=== PATIENT | female | born 1950 | race Caucasian/White ===

== ENCOUNTER 2017-07-06 20:08 | Emergency (ER) | payer MEDICARE, BC ==
[2017-07-06 20:38] VITALS: BP 165/74; PULSE 78; RESP 18; TEMP 98.3; O2SAT 96
[2017-07-06] MEDS ORDERED: METF500T PO (20:59)
[2017-07-06] MEDS ORDERED: ASPI81CH6 CHEW (20:59)
[2017-07-06] MEDS ORDERED: ROSU5 PO (20:59)
[2017-07-06] MEDS ORDERED: GLIP10TA6 PO (20:59)
[2017-07-06] MEDS ORDERED: DULA0.5I SQ (20:59)
[2017-07-06] MEDS ORDERED: COZA50TA PO (20:59)
[2017-07-06] MEDS ORDERED: MULTTAB67 PO (20:59)
[2017-07-06] MEDS ORDERED: ZANT150T2 PO (20:59)
[2017-07-06 21:14] VITALS: BP 156/87; PULSE 73; RESP 16; O2SAT 95
--- NOTE | 2017-07-06 21:54 | PD ---
HPI Chief Complaint: Chest Pain Time Seen by Provider: 21:50 Travel History International Travel<30 days: No Contact w/Intl Traveler<30days: No Traveled to known affect area: No History of Present Illness HPI The patient is a 67-year-old female with no known history of heart disease who at 6 PM felt a sharp, knifelike, constant, pleuritic epigastric pain radiating to the back, 10 over 10. This pain lasted about 15 minutes and is completely gone away now. She denies any fever, melanotic or bloody stools. She denies any chest pain. She does not smoke. She does have dae-tjgfgns-lskjvjbob diabetes and hypertension. She has never had this pain before. There were no modifying factors making it better or worse. PFSH Past Medical History High Cholesterol: Yes Diabetes: Yes Patient Takes Glucophage: Yes GERD: Yes Hypertension: Yes Medical other: Yes (CH[employer] POX: AGE 20) Tetanus Vaccination: > 5 Years Influenza Vaccination: Yes ?: Not Menopausal: Yes : 2 Para: 2 Past Surgical History Tonsillectomy: Yes Social History Alcohol Use: Yes ("SOCIALLY") Tobacco Use: No (QUIT AGE 47) Substance Use: No Allergies-Medications (Allergen,Severity, Reaction): Coded Allergies: No Known Allergies (Unverified , 07/06/17) Reported Meds & Prescriptions Reported Meds & Active Scripts Active Reported Glipizide 10 Mg Tab 10 Mg PO BIDAC Take 30 minutes before a meal Metformin (Metformin HCl) 500 Mg Tab 500 Mg PO BIDPC Review of Systems Except as stated in HPI: all other systems reviewed are Neg Physical Exam Narrative GENERAL: The patient is alert, oriented 3 in no apparent distress. Her vital signs show blood pressure 165/74 but otherwise normal. SKIN: Focused skin assessment warm/dry. HEAD: Atraumatic. Normocephalic. EYES: Pupils equal and round. No scleral icterus. No injection or drainage. ENT: No nasal bleeding or discharge. Mucous membranes pink and moist. NECK: Trachea midline. No JVD. CARDIOVASCULAR: Regular rate and rhythm. No murmur appreciated. I cannot reproduce the patient's pain by pressing on the chest wall. RESPIRATORY: No accessory muscle use. Clear to auscultation. Breath sounds equal bilaterally. GASTROINTESTINAL: Abdomen soft, non-tender, nondistended. Hepatic and splenic margins not palpable. No guarding or rebound is present. I cannot reproduce the patient's pain by pressing on the abdominal wall. MUSCULOSKELETAL: No obvious deformities. No clubbing. No cyanosis. No edema. NEUROLOGICAL: Awake and alert. No obvious cranial nerve deficits. Motor grossly within normal limits. Normal speech. PSYCHIATRIC: Appropriate mood and affect; insight and judgment normal. Data Data Last Documented VS Vital Signs Date Time Temp Pulse Resp B/P (MAP) Pulse Ox O2 Delivery O2 Flow Rate FiO2 07/06/17 22:53 73 16 170/92 (118) 99 Room Air 07/06/17 20:38 98.3 Orders Orders Electrocardiogram (07/06/17 20:23) Complete Blood Count With Diff (07/06/17 21:55) Comprehensive Metabolic Panel (07/06/17 21:55) Troponin I (07/06/17 21:55) Sodium Chloride 0.9% Flush (Ns Flush) (07/06/17 22:00) Chest, Pa & Lat (07/06/17 21:55) Pantoprazole (Protonix) (07/06/17 23:15) Labs Laboratory Tests Test 07/06/17 20:50 White Blood Count 10.3 TH/MM3 Red Blood Count 4.07 MIL/MM3 Hemoglobin 12.3 GM/DL Hematocrit 35.6 % Mean Corpuscular Volume 87.5 FL Mean Corpuscular Hemoglobin 30.1 PG Mean Corpuscular Hemoglobin Concent 34.5 % Red Cell Distribution Width 13.2 % Platelet Count 264 TH/MM3 Mean Platelet Volume 9.1 FL Neutrophils (%) (Auto) 64.9 % Lymphocytes (%) (Auto) 27.6 % Monocytes (%) (Auto) 4.9 % Eosinophils (%) (Auto) 1.5 % Basophils (%) (Auto) 1.1 % Neutrophils # (Auto) 6.6 TH/MM3 Lymphocytes # (Auto) 2.9 TH/MM3 Monocytes # (Auto) 0.5 TH/MM3 Eosinophils # (Auto) 0.2 TH/MM3 Basophils # (Auto) 0.1 TH/MM3 CBC Comment DIFF FINAL Differential Comment Blood Urea Nitrogen 20 MG/DL Creatinine 0.62 MG/DL Random Glucose 261 MG/DL Total Protein 7.0 GM/DL Albumin 3.6 GM/DL Calcium Level 8.6 MG/DL Alkaline Phosphatase 138 U/L Aspartate Amino Transf (AST/SGOT) 20 U/L Alanine Aminotransferase (ALT/SGPT) 32 U/L Total Bilirubin 0.2 MG/DL Sodium Level 138 MEQ/L Potassium Level 3.6 MEQ/L Chloride Level 103 MEQ/L Carbon Dioxide Level 26.8 MEQ/L Anion Gap 8 MEQ/L Estimat Glomerular Filtration Rate 96 ML/MIN Troponin I LESS THAN 0.02 NG/ML MDM Medical Decision Making Medical Screen Exam Complete: Yes Emergency Medical Condition: Yes Medical Record Reviewed: Yes Interpretation(s) The EKG is completely normal with a ventricular rate of 74. The CBC is normal. The complete metabolic profile is normal and the troponin I is normal. The chest x-ray is normal. Differential Diagnosis Reflux esophagitis, ulcer pain, pancreatitis, chest wall pain, acute coronary syndrome-highly unlikely, electrolyte disorder, gastritis Narrative Course The patient likely has gastritis. She will be given Protonix, apparently they already have that at home. 40 mg by mouth daily is the dose. Diagnosis Primary Impression: Gastritis Additional Instructions: As we discussed, take the Protonix that you already have at home, 40 mg by mouth daily. Follow-up next week with a primary care physician. Avoid alcohol , aspirin and nonsteroidal anti-inflammatory medications. Follow-up with a primary care physician next week. Disposition: 01 DISCHARGE HOME Gibran Mcgregor MD Jul 06, 2017 21:54
[2017-07-06] MEDS ORDERED: SODIUM CHLORIDE 0.9% FLUSH 10 ML FLUSH IVF PRN (22:00)
[2017-07-06 22:18] LABS: AUTOMATED NEUTROPHIL # 6.6 TH/MM3 (1.8-7.7); BASOPHIL # 0.1 TH/MM3 (0-0.2); BASOPHIL % 1.1 % (0.0-2.0); EOSINOPHIL # 0.2 TH/MM3 (0-0.4); EOSINOPHIL % 1.5 % (0.0-4.0); HEMATOCRIT 35.6 % (35.0-46.0); HEMOGLOBIN 12.3 GM/DL (11.6-15.3); LYMPH % 27.6 % (9.0-44.0); LYMPHOCYTE # 2.9 TH/MM3 (1.0-4.8); MEAN CELL VOLUME 87.5 FL (80.0-100.0); MEAN CORPUSCULAR HEMOGLOBIN 30.1 PG (27.0-34.0); MEAN CORPUSCULAR HGB CONC 34.5 % (32.0-36.0); MEAN PLATELET VOLUME 9.1 FL (7.0-11.0); MONO % 4.9 % (0.0-8.0); MONOCYTE # 0.5 TH/MM3 (0-0.9); NEUT % 64.9 % (16.0-70.0); PLATELET COUNT 264 TH/MM3 (150-450); RED BLOOD COUNT 4.07 MIL/MM3 (4.00-5.30); RED CELL DISTRIBUTION WIDTH 13.2 % (11.6-17.2); WHITE BLOOD COUNT 10.3 TH/MM3 (4.0-11.0)
[2017-07-06 22:27] LABS: CHLORIDE 103 MEQ/L (98-107); SODIUM (NA) 138 MEQ/L (136-145)
[2017-07-06 22:31] LABS: CALCIUM 8.6 MG/DL (8.5-10.1)
[2017-07-06 22:32] LABS: ALBUMIN 3.6 GM/DL (3.4-5.0); BICARBONATE 26.8 MEQ/L (21.0-32.0); BLOOD UREA NITROGEN 20 MG/DL (7-18); GLUCOSE,RANDOM 261 MG/DL (74-106)
[2017-07-06 22:35] LABS: ALT (GPT) 32 U/L (10-53); AST (GOT) 20 U/L (15-37); CREATININE 0.62 MG/DL (0.50-1.00); GLOMERULAR FILTRATION RATE 96 ML/MIN (>89)
[2017-07-06 22:37] LABS: TOTAL BILIRUBIN ADULT 0.2 MG/DL (0.2-1.0)
[2017-07-06 22:38] LABS: ALKALINE PHOSPHATASE 138 U/L (45-117)
[2017-07-06 22:40] LABS: TROPONIN I LESS THAN 0.02 NG/ML (0.02-0.05)
--- NOTE | 2017-07-06 22:45 | RADRPT ---
EXAM DATE/TIME: 07/06/2017 22:20 [facility] COMPARISON: No previous studies available for comparison. INDICATIONS : Chest pain. MEDICAL HISTORY : Diabetes mellitus type II. Hypertension SURGICAL HISTORY : None. ENCOUNTER: Initial ACUITY: 1 day PAIN SCORE: 10/10 LOCATION: Bilateral chest FINDINGS: PA and lateral views of the chest demonstrate the lungs to be symmetrically aerated without evidence of mass, infiltrate or effusion. The cardiomediastinal contours are unremarkable. Osseous structure s are intact. CONCLUSION: No acute cardiopulmonary disease. Giancarlo Martinez MD on July 06, 2017 at 22:42 Board Certified Radiologist. This report was verified electronically.
[2017-07-06 22:53] VITALS: BP 170/92; PULSE 73; RESP 16; O2SAT 99
[2017-07-06] MEDS ORDERED: PANTOPRAZOLE SOD 40 MG DELAYED RELEASE TAB PO ONE (23:15)
--- NOTE | 2017-07-07 00:35 | EKG ---
Date Performed: 07/06/2017 Time Performed: 20:23:49 PTAGE: 67 years EKG: Sinus rhythm NORMAL ECG NO PREVIOUS TRACING DOCTOR: Ky Cabezas Interpretating Date/Time 07/07/2017 00:34:19
== END 2017-07-06 23:25 | disposition home or self-care (01) ==
LOC: PHED 20:08
DX: K29.70 Gastritis, unspecified, without bleeding (principal); E78.00 Pure hypercholesterolemia, unspecified; E11.9 Type 2 diabetes mellitus without complications; I10 Essential (primary) hypertension
CPT/HCPCS: 71046; 80053; 84484; 85025; 93005; 99285

== ENCOUNTER 2017-10-28 11:24 | Emergency (ER) | payer MEDICARE, BC ==
[~2017-10-28] VITALS: Ht 170.2 cm; Wt 79.0 kg
[~2017-10-28 11:24] MED LIST: ASPI81CH6 CHEW; COZA50TA PO; DULA0.5I SQ; GLIP10TA6 PO; METF500T PO; MULTTAB67 PO; ROSU5 PO; ZANT150T2 PO
[2017-10-28 11:27] VITALS: BP 178/83; PULSE 77; RESP 16; TEMP 97.8; O2SAT 98
[2017-10-28 12:10] LABS: BILIRUBIN, URINE NEG (NEG); BLOOD, URINE NEG (NEG); GLUCOSE,URINE 250 mg/dL (NEG); KETONE, URINE NEG (NEG); NITRITE,URINE NEG (NEG); URINE COLOR YELLOW (YELLW/STRAW); URINE LEUKOCYTE ESTERASE TRACE (NEG)
[2017-10-28] MEDS ORDERED: CYCLOBENZAPRINE HCL 10 MG TAB PO ONE (12:15)
[2017-10-28] MEDS ORDERED: ACETAMINOPHEN/HYDROcodone 325 MG/5 MG TAB PO ONE (12:15)
[2017-10-28 12:20] LABS: BACTERIA, URINE MOD /hpf; SQUAMOUS EPITHELIAL CELL URINE 0-5 /hpf (0-5); WBC, URINE 0-2 /hpf (0-5)
[2017-10-28 12:21] VITALS: BP 143/74; PULSE 78; RESP 16; O2SAT 98
--- NOTE | 2017-10-28 12:22 | PD ---
HPI Chief Complaint: Abdominal Pain Time Seen by Provider: 11:44 Travel History International Travel<30 days: No Contact w/Intl Traveler<30days: No Traveled to known affect area: No History of Present Illness HPI Patient is a 67-year-old female presents emergency department for evaluation of back pain now with some suprapubic pressure and feeling like "things are starting to fall out down there". Patient states she has a history of bladder mesh for bladder prolapse. She denies any saddle anesthesia denies any weakness or tingling in her legs and denies any dysuria. Patient states that the symptoms all started a few days ago when she was lifting a cabinet off the ground. She did not feel any injury at that time. States has no problems with her back and it does worsen with bending motion. States symptoms are moderate, associated signs symptoms context and duration as above. PFSH Past Medical History Hx Anticoagulant Therapy: Yes (BABY ASA DAILY) Cardiovascular Problems: Yes (HTN, CHOL) High Cholesterol: Yes Diabetes: Yes Patient Takes Glucophage: Yes GERD: Yes Hypertension: Yes ?: Not Menopausal: Yes : 2 Para: 2 Past Surgical History Tonsillectomy: Yes Other Surgery: Yes (bladder lift) Social History Alcohol Use: Yes ("SOCIALLY") Tobacco Use: No (QUIT AGE 47) Substance Use: No Allergies-Medications (Allergen,Severity, Reaction): Coded Allergies: No Known Allergies (Unverified , 10/28/17) Reported Meds & Prescriptions Reported Meds & Active Scripts Active Ultram (Tramadol HCl) 50 Mg Tab 50 Mg PO Q6H PRN Prednisone 20 Mg Tab 60 Mg PO DAILY 5 Days Reported Zantac (Ranitidine HCl) 150 Mg Tab 150 Mg PO HS Cozaar (Losartan Potassium) 50 Mg Tab 50 Mg PO DAILY Aspirin Low Dose (Aspirin) 81 Mg Chew 81 Mg CHEW DAILY Multiple Vitamin 1 Tab 1 Tab PO DAILY Trulicity Inj (Dulaglutide Inj) 1.5 Mg/0.5 Ml Pen 1.5 Mg SQ Q7D Crestor (Rosuvastatin Calcium) 5 Mg Tab 5 Mg PO HS Glipizide 10 Mg Tab 10 Mg PO BIDAC Take 30 minutes before a meal Metformin (Metformin HCl) 500 Mg Tab 500 Mg PO BIDPC Review of Systems Except as stated in HPI: all other systems reviewed are Neg Physical Exam Narrative GENERAL: Well-nourished, well-developed patient. SKIN: Focused skin assessment warm/dry. HEAD: Normocephalic. EYES: No scleral icterus. No injection or drainage. NECK: Supple, trachea midline. No JVD or lymphadenopathy. CARDIOVASCULAR: Regular rate and rhythm without murmurs, gallops, or rubs. RESPIRATORY: Breath sounds equal bilaterally. No accessory muscle use. GASTROINTESTINAL: Abdomen soft, non-tender, nondistended. GENITOURINARY: Exam performed with female nurse manager wholesale present all times there is no hernia there is no pelvic organ prolapse, patient has sensation intact and no numbness and tingling reported MUSCULOSKELETAL: No cyanosis, or edema. There is no midline CT or L-spine tenderness, pelvis stable, no step-off. There is 5 out of 5 strength in all 4 extremities, pulses motor and sensory intact distally in all 4 extremities. BACK: Nontender without obvious deformity. No CVA tenderness. Data Data Last Documented VS Vital Signs Date Time Temp Pulse Resp B/P (MAP) Pulse Ox O2 Delivery O2 Flow Rate FiO2 10/28/17 14:45 10/28/17 14:43 74 16 97 Room Air 10/28/17 11:[address] Lumb Spine W/O Contrast (10/28/17 ) Urinalysis - C+S If Indicated (10/28/17 11:48) Cyclobenzaprine (Flexeril) (10/28/17 12:15) Acetamin-Hydrocod 325-5 Mg ([place] 5-325 (10/28/17 12:15) Urine Culture (10/28/17 11:50) Ed Discharge Order (10/28/17 14:17) Labs Laboratory Tests Test 10/28/17 11:50 Urine Color YELLOW Urine Turbidity CLEAR Urine pH 5.0 Urine Specific [place] 1.010 Urine Protein NEG mg/dL Urine Glucose (UA) 250 mg/dL Urine Ketones NEG mg/dL Urine Occult Blood NEG Urine Nitrite NEG Urine Bilirubin NEG Urine Urobilinogen 0.2 MG/DL Urine Leukocyte Esterase TRACE Urine WBC 0-2 /hpf Urine Squamous Epithelial Cells 0-5 /hpf Urine Bacteria MOD /hpf Microscopic Urinalysis Comment CULTURE INDICATED MDM Medical Decision Making Medical Screen Exam Complete: Yes Emergency Medical Condition: Yes Differential Diagnosis Cauda equina syndrome is excluded clinically, pelvic organ prolapse, degenerative disc disease, lumbar fracture unlikely peer Narrative Course Patient was room to the emergency department, she appears well in no obvious distress, there is no evidence of pelvic organ prolapse and no evidence for cauda equina syndrome. Her CAT scan does show some degenerative disc disease which I think would explain the patient's symptoms. After medication she is feeling better, she ambulated from the emergency department in no obvious distress. Discussed symptomatic management follow-up with a primary care physician or back surgeon for consideration of MRI of her symptoms not improve in a few weeks. Discussed return to ED criteria including the criteria for cauda equina syndrome. Diagnosis Primary Impression: DDD (degenerative disc disease) Qualified Codes: M51.36 - Other intervertebral disc degeneration, lumbar region Med/Other Pt SpecificInfo: Prescription(s) given Scripts Tramadol (Ultram) 50 Mg Tab 50 MG PO Q6H Y for PAIN, #15 TAB 0 Refills Prov: Spike Ricks MD 10/28/17 Prednisone (Prednisone) 20 Mg Tab 60 MG PO DAILY for 5 Days, #15 TAB 0 Refills Prov: Spike Ricks MD 10/28/17 Disposition: 01 DISCHARGE HOME Condition: Stable Spike Ricks MD Oct 28, 2017 12:22
[2017-10-28 13:20] VITALS: BP 163/84; PULSE 77; RESP 16; O2SAT 97
--- NOTE | 2017-10-28 13:58 | RADRPT ---
EXAM DATE: 10/28/2017 12:56 PM EDT AGE/SEX: 67 years / Female INDICATIONS: Lower back pain after lifting heavy object a few days ago. CLINICAL DATA: This is the patient's initial encounter. Patient reports that signs and symptoms have been present for 3 days and indicates a pain score of 5/10. MEDICAL/SURGICAL HISTORY: Hypertension. Hypercholesterolemia. Gastroesophageal reflux disease. . Bladder lift. RADIATION DOSE: 40.23 CTDI (mGy) COMPARISON: No prior [facility] exams available for comparison. TECHNIQUE: Contiguous axial images were acquired with a multirow detector CT scanner without contras t. Multiplanar reconstructions in the sagittal and coronal plane were also performed. Using automate d exposure control and adjustment of the mA and/or kV according to patient size, radiation dose was k ept as low as reasonably achievable to obtain optimal diagnostic quality images. FINDINGS: Sagittal and coronal reconstruction show a mild dextroscoliosis of the lumbar spine with associated d egenerative disc disease. Degenerative changes are most prominent at L2-3 and L5-S1. There is a minim al grade 1 retrolisthesis of L5 on S1 with a diffusely calcified disc but directed anteriorly. Verteb ral body heights are maintained without fracture. Spinal canal appears to be adequate throughout. T12-L1: The thecal sac has a normal diameter. No evidence of disc bulge or protrusion. The neural foramina are patent bilaterally. L1-L2: The thecal sac has a normal diameter. No evidence of disc bulge or protrusion. The neural f oramina are patent bilaterally. L2-L3: Marginal spurring directed anteriorly. Spinal canal and neural foramina are patent L3-L4: The thecal sac has a normal diameter. No evidence of disc bulge or protrusion. The neural f oramina are patent bilaterally. L4-L5: Predominantly due to facet hypertrophy, there is some encroachment on the spinal canal but no central nerve root compromise. Both neural foramina are adequate. L5-S1: Significant marginal spurring predominantly directed right lateral. Spinal canal and neural f oramina are adequate CONCLUSION: 1. Degenerative disc disease most severe at L2-3 and L5-S1 as detailed above. 2. Despite degenerative changes, the spinal canal and neural foramina appear to be adequate througho ut with no obvious nerve root compromise. 3. No fracture or traumatic listhesis. Electronically signed by: Yosef Bhatt MD 10/28/2017 1:57 PM EDT
[2017-10-28] MEDS ORDERED: TRAM50 PO (14:16)
[2017-10-28] MEDS ORDERED: PRED20 PO (14:16)
[2017-10-28 14:43] VITALS: BP 136/81; PULSE 74; RESP 16; O2SAT 97
== END 2017-10-28 14:45 | disposition home or self-care (01) ==
LOC: PHED 11:24
DX: M51.37 Other intervertebral disc degeneration, lumbosacral region (principal); B96.20 Unspecified Escherichia coli [E. coli] as the cause of diseases classified elsewhere; E78.00 Pure hypercholesterolemia, unspecified; I10 Essential (primary) hypertension; E11.9 Type 2 diabetes mellitus without complications; K21.9 Gastro-esophageal reflux disease without esophagitis; N81.10 Cystocele, unspecified; Z87.891 Personal history of nicotine dependence
CPT/HCPCS: 72131; 81001; 87077; 87086; 87186; 99284